=== PATIENT | male | born 1935 | race Caucasian/White ===

== ENCOUNTER → 2019-02-02 11:52 | Outpatient (CLI) | payer OTHER, SELFPAY ==
[2018-09-01 08:21] VITALS: BMI 26.0
--- NOTE | 2019-02-02 | DI.RAD.S_ITS ---
PROCEDURE: XR LUMBAR SPINE 2-3V INDICATIONS: LOW BACK PAIN TECHNIQUE: 2 views of the lumbar spine were acquired. COMPARISON: [facility], CT, CT ANGIO CHEST PE, 01/01/2019, 11:32. FINDINGS: Bones: 5 qed-vex-foclegk vertebrae are present. There is mild levocurvature; otherwise normal bony alignment. Mild anterior wedge deformity of L1 vertebral body. No suspicious bony lesions. There is degenerative disc disease, severe at L3-L4, L4-L5 and L5-S1, and mild at L1-L2 and L2-L3. Moderate facet arthropathy is noted at L4-L5 and L5-S1. Soft tissues: Overlying bowel gas pattern is normal. Vascular calcifications are noted. IMPRESSION: 1. Degenerative disc and facet disease. 2. Mild anterior wedge deformity of L1. Dictated by: Simona Adams M.D. on 02/02/2019 at 12:55 Approved by: Simona Adams M.D. on 02/03/2019 at 10:01
== END ==
PROVIDERS: PCP Internal Medicine; Visit Provider Internal Medicine
DX: M54.5 Low back pain (principal); M51.36 Other intervertebral disc degeneration, lumbar region; M51.37 Other intervertebral disc degeneration, lumbosacral region; M47.816 Spondylosis without myelopathy or radiculopathy, lumbar region; M47.817 Spondylosis without myelopathy or radiculopathy, lumbosacral region
CPT/HCPCS: 72100

== ENCOUNTER → 2019-02-08 12:45 | Outpatient (CLI) | payer OTHER, SELFPAY ==
[2018-09-01 08:21] VITALS: BMI 26.0
--- NOTE | 2019-02-08 12:54 | DI.CT.S_ITS ---
PROCEDURE: CT LUMBAR SPINE W CON INDICATIONS: Low back pain TECHNIQUE: After the administration of intravenous Isovue contrast, 3 mm thick sections acquired through the levels of interest. Sagittal and coronal reformats were then constructed. For radiation dose reduction, the following was used: automated exposure control. COMPARISON: [facility], CR, XR LUMBAR SPINE 2-3V, 02/02/2019, 11:59. [facility], CT, ABDOMEN WITHOUT CONTRAST, 09/01/2015, 10:40. FINDINGS: Image quality: Excellent. Bones: Moderate levoconvex lumbar scoliosis is seen. There is minimal retrolisthesis seen at the L3-L4 and L4-L5 levels. No acute fractures are seen. Mild anterior wedge deformities are seen of L1 and L2. L2-L3: Mild loss of disc height is seen. Endplate irregularity and sclerosis are seen. There is moderate right-sided and mild left-sided neural foraminal narrowing seen. Moderate central canal narrowing is seen. L3-L4: Moderate loss of disc height is seen. Mild vacuum disc phenomenon is seen anteriorly. Endplate irregularity and sclerosis can be seen. There is at least moderate bilateral neural foraminal narrowing seen, left worse than right. Moderate central canal narrowing is seen. L4-L5: Moderate to severe loss of disc height is seen. Vacuum disc phenomenon is seen at this level. 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 Moderate generalized disc bulge is seen. Moderate facet joint hypertrophy is seen, left worse than right. There is moderate to severe left-sided and moderate right-sided neural foraminal narrowing seen. There is a degree of compression seen upon the exiting nerve roots. Moderate central canal narrowing is seen. L5-S1: Moderate to severe loss of disc height is seen. Vacuum disc phenomenon is seen at this level. Endplate irregularity and sclerosis can be seen. Posteriorly directed endplate osteophytes are seen. Moderate facet joint hypertrophy is seen. Moderate to severe bilateral neural foraminal narrowing is seen at this level. There is a degree of compression seen upon the exiting nerve roots. Mild central canal narrowing is seen. Soft tissues: AICD leads can be seen on the ms sql developer image. Sternotomy wires are seen. No abdominal aortic aneurysm can be seen. Atherosclerotic calcification is noted. The visualized retroperitoneal structures are within normal limits. IMPRESSION: Multiple levels of lumbar spine degenerative change are seen, which are most prominent at the L4-L5 and L5-S1 levels. Nerve root compression can be seen upon the exiting L4 and L5 nerve roots on both sides. Moderate levoconvex scoliosis. Dictated by: Bernabe Gabriel M.D. on 02/08/2019 at 16:43 Approved by: Bernabe Gabriel M.D. on 02/08/2019 at 16:49
[2019-02-08 13:22] LABS: Blood Urea Nitrogen 30 mg/dL (9-20); Estimated Glomerular Filt Rate > 60.0 mL/min (>60)
== END ==
PROVIDERS: PCP Internal Medicine; Visit Provider Internal Medicine
DX: M54.5 Low back pain (principal); M47.816 Spondylosis without myelopathy or radiculopathy, lumbar region; M47.817 Spondylosis without myelopathy or radiculopathy, lumbosacral region; M41.86 Other forms of scoliosis, lumbar region
CPT/HCPCS: 36415; 72132; 82565; 84520

== ENCOUNTER → 2020-04-12 13:44 | Outpatient (CLI) | payer OTHER, SELFPAY ==
[2018-09-01 08:21] VITALS: BMI 26.0
[2020-04-12 14:49] LABS: BUN Creatinine Ratio 27.5 (6-22); Blood Urea Nitrogen 28 mg/dL (9-20); Calcium 9.4 mg/dL (8.4-10.2); Carbon Dioxide 32 mmol/L (22-32); Chloride 96 mmol/L (98-107); Estimated Glomerular Filt Rate > 60.0 mL/min (>60); Glucose 86 mg/dL (80-110); HEMOLYSIS < 15 (0-50); Potassium 4.7 mmol/L (3.4-5.1); Sodium 133 mmol/L (137-145)
== END ==
PROVIDERS: PCP Internal Medicine; Referring Provider Registered Nurse; Visit Provider Registered Nurse
DX: I25.5 Ischemic cardiomyopathy (principal)
CPT/HCPCS: 36415; 80048

== ENCOUNTER → 2020-04-20 12:05 | Outpatient (CLI) | payer OTHER, SELFPAY ==
[2018-09-01 08:21] VITALS: BMI 26.0
[2020-04-20 13:34] LABS: Add Manual Diff / Slide Review NO; Basophils Absolute Auto 0 /uL (0-100); Basophils Percent Auto 0.3 % (0-2); Eosinophils Absolute Auto 100 /uL (0-450); Eosinophils Percent Auto 2.3 % (2-4); Hematocrit 45.5 % (41-53); Lymphocytes Absolute Auto 2900 /uL (1100-4500); Mean Corpuscular HGB Conc 32.9 % (30-36); Mean Corpuscular Volume 94.1 fL (80-100); Monocytes Absolute Auto 1100 /uL (0-900); Neutrophils Absolute Auto 2100 /uL (1500-7000); Neutrophils Percent Auto 33.4 % (50-75); Platelet Count 140 X10^3/uL (150-400); Red Blood Cell Count 4.83 X10^6/uL (4.5-5.9); Red Cell Distribution Width 14.8 % (11.6-14.8); White Blood Cell Count 6.2 X10^3/uL (4.5-11.0)
[2020-04-20 13:59] LABS: BUN Creatinine Ratio 29.4 (6-22); Blood Urea Nitrogen 35 mg/dL (9-20); Calcium 9.4 mg/dL (8.4-10.2); Carbon Dioxide 33 mmol/L (22-32); Chloride 96 mmol/L (98-107); Estimated Glomerular Filt Rate 58.4 mL/min (>60); Glucose 107 mg/dL (80-110); HEMOLYSIS < 15 (0-50); Potassium 4.2 mmol/L (3.4-5.1); Sodium 136 mmol/L (137-145)
== END ==
PROVIDERS: PCP Internal Medicine; Referring Provider Registered Nurse; Visit Provider Registered Nurse
DX: I25.10 Atherosclerotic heart disease of native coronary artery without angina pectoris (principal); Z86.74 Personal history of sudden cardiac arrest; Z95.5 Presence of coronary angioplasty implant and graft
CPT/HCPCS: 36415; 80048; 85025

== ENCOUNTER → 2020-07-18 13:49 | Outpatient (CLI) | payer OTHER, SELFPAY ==
[2018-09-01 08:21] VITALS: BMI 26.0
[2020-07-18 15:14] LABS: BUN Creatinine Ratio 25.5 (6-22); Blood Urea Nitrogen 35 mg/dL (9-20); Carbon Dioxide 35 mmol/L (22-32); Chloride 96 mmol/L (98-107); Estimated Glomerular Filt Rate 49.6 mL/min (>60); Glucose 121 mg/dL (80-110); HEMOLYSIS < 15 (0-50); Potassium 4.9 mmol/L (3.4-5.1); Sodium 138 mmol/L (137-145)
== END ==
PROVIDERS: PCP Internal Medicine; Referring Provider Registered Nurse; Visit Provider Registered Nurse
DX: I25.10 Atherosclerotic heart disease of native coronary artery without angina pectoris (principal)
CPT/HCPCS: 36415; 80048